=== PATIENT | female | born 1955 | race Caucasian/White ===

== ENCOUNTER 2018-04-13 11:06 | Emergency (ER) | payer OTHER ==
[2018-04-13 11:38] LABS: URINE BLOOD (Dip) POC Negative (NEGATIVE); URINE GLUCOSE (Dip) POC Negative (NEGATIVE); URINE KETONES (Dip) POC Negative (NEGATIVE); URINE LEUKOCYTE EST (Dip) POC Negative (NEGATIVE); URINE NITRITE (Dip) POC Negative (NEGATIVE); URINE TOTAL PROTEIN POC Negative (NEGATIVE)
[2018-04-13] MEDS: KETOROLAC 30 MG INJ IM (12:01)
[2018-04-13] MEDS: FAMOTIDINE 20 MG TAB PO (12:01)
== END 2018-04-13 12:59 | disposition home or self-care (01) ==
LOC: FTE 11:06
DX: M25.562 Pain in left knee (principal); M79.10 Myalgia, unspecified site; M19.90 Unspecified osteoarthritis, unspecified site
CPT/HCPCS: 81003; 81025; 96372; 99284-25